=== PATIENT | female | born 1975 | race Caucasian/White ===

== ENCOUNTER 2024-06-01 08:56 | Day surgery (SDC) | payer OTHER ==
[~2024-06-01 08:56] MED LIST: Sodium Chloride 0.9% 10 ML Syringe FLUSH PRN; Sodium Chloride 0.9% 10 ML Syringe FLUSH SCH
[2024-06-01] MEDS: Lactated Ringers 1,000 ML IV SCH (09:15)
[2024-06-01] MEDS ORDERED: Lidocaine 2% 5 ML SDV ONE (10:06)
[2024-06-01] MEDS ORDERED: Propofol 200 MG/20 ML SDV ONE (10:06)
[2024-06-01] MEDS ORDERED: fentaNYL 100 MCG/2 ML SDV ONE (10:06)
[2024-06-01] MEDS ORDERED: Midazolam 1 MG/ML 2 ML SDV ONE (10:11)
== END 2024-06-01 11:34 | disposition home or self-care (01) ==
LOC: JD.SDS 08:56
PROVIDERS: ATTEND Surgery
DX: Z12.11 Encounter for screening for malignant neoplasm of colon (principal); J45.909 Unspecified asthma, uncomplicated
CPT/HCPCS: 45378; J2250; J2704; J3010; J7120; 00812; J3490